=== PATIENT | female | born 2000 | race Caucasian/White ===

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

== ENCOUNTER 2020-07-25 22:28 | Emergency (ER) | payer OTHER ==
[~2020-07-25] VITALS: Ht 165.1 cm; Wt 83.6 kg
[~2020-07-25 22:28] MED LIST changes: +ZOFRAN ODT4 MG PO
[2020-07-25 23:11] LABS: COLLECTION METHOD CLEAN CATCH
[2020-07-25 23:13] LABS: BASO % 0.2 % (0.0-2.0); EOS % 0.1 % (0-4.0); GRAN # 8.9 (1.4-6.5); GRAN % 88.1 % (42.2-75.2); LYMPH # 0.8 (1.2-3.4); LYMPH % 7.8 % (20.0-51.0); MEAN CELL VOLUME 87 fl (80.0-95.0); MEAN CORPUSCULAR HEMOGLOBIN 29 pg (26.0-32.0); MEAN CORPUSCULAR HGB CONC 33 g/dl (33.0-37.0); MEAN PLATELET VOLUME 10.4 fl (7.4-10.4); MONO # 0.3 (0.1-0.6); MONO % 3.4 % (1.7-9.3); PLATELET COUNT 281 K/mm3 (130-400); REDCELL DISTRIBUTION WIDTH-CV 12.2 % (11.5-14.5)
[2020-07-25 23:21] LABS: MUCOUS Present /lpf; PH 6 (5-8); URINE APPEARANCE Hazy; URINE BACTERIA None Seen /hpf; URINE BILIRUBIN Negative (NEGATIVE); URINE BLOOD 2+ (NEGATIVE); URINE COLOR Amber; URINE GLUCOSE Negative (NEGATIVE); URINE KETONE 2+ (NEGATIVE); URINE LEUKOCYTE ESTERASE 2+ (NEGATIVE); URINE NITRATE Negative (NEGATIVE); URINE PROTEIN(semi-quant) 1+ (NEGATIVE); URINE UROBILINOGEN >=4.0 mg/dL (NEGATIVE)
[2020-07-25 23:27] LABS: ALBUMIN 4.3 gm/dL (3.5-5.0); BILIRUBIN,TOTAL 0.7 mg/dL (0.0-1.0); CREATININE, serum 0.61 (0.52-1.25); POTASSIUM 3.7 mmol/L (3.4-5.0)
[2020-07-26 01:19] VITALS: BP 112/74; PULSE 84
== END 2020-07-26 01:30 | disposition home or self-care (01) ==
LOC: COL.ER 22:28
PROVIDERS: Nurse Practitioner
DX: R11.2 Nausea with vomiting, unspecified (principal); R10.10 Upper abdominal pain, unspecified; R19.7 Diarrhea, unspecified; Z90.49 Acquired absence of other specified parts of digestive tract
CPT/HCPCS: J2405; J7030

== ENCOUNTER 2021-09-08 17:29 | Emergency (ER) | payer MEDICAID ==
[~2021-09-08] VITALS: Ht 165.1 cm; Wt 86.4 kg
[2021-09-08 17:39] VITALS: TEMP 98.2
[2021-09-08 18:18] LABS: COLLECTION METHOD CLEAN CATCH
[2021-09-08 18:25] LABS: MUCOUS Present (NOT PRESENT); PH 6 (5-8); URINE APPEARANCE Hazy (CLEAR/HAZY); URINE BACTERIA Rare /hpf (NONE SEEN); URINE BILIRUBIN Negative (NEGATIVE); URINE BLOOD Negative (NEGATIVE); URINE COLOR Yellow (YELLOW); URINE GLUCOSE Negative (NEGATIVE); URINE KETONE Trace (NEGATIVE); URINE LEUKOCYTE ESTERASE Trace (NEGATIVE); URINE NITRATE Negative (NEGATIVE); URINE PROTEIN(semi-quant) Negative (NEGATIVE); URINE UROBILINOGEN Negative (NEGATIVE)
[2021-09-08] MEDS ORDERED: PROMETHAZINE12.5 M5 PO (18:30)
[2021-09-08 18:52] LABS: CALCIUM 9.1 mg/dL (8.4-10.2); CREATININE, serum 0.62 mg/dL (0.57-1.11); POTASSIUM 3.3 mmol/L (3.5-4.5)
[2021-09-08] MEDS ORDERED: MACROBID 1100 MG/CAP PO (19:06)
[2021-09-08] MEDS ORDERED: REGLAN 10MG10 MG/TAB PO (19:06)
[2021-09-08 19:13] VITALS: BP 121/74; PULSE 72
== END 2021-09-08 19:20 | disposition home or self-care (01) ==
LOC: COL.ER 17:29
PROVIDERS: Emergency Medicine
DX: O23.41 Unspecified infection of urinary tract in pregnancy, first trimester (principal); B96.89 Other specified bacterial agents as the cause of diseases classified elsewhere; R55 Syncope and collapse; O26.891 Other specified pregnancy related conditions, first trimester; E86.0 Dehydration; Z3A.12 12 weeks gestation of pregnancy; Z28.311 Partially vaccinated for COVID-19
CPT/HCPCS: J7030

== ENCOUNTER 2021-09-26 16:55 | Emergency (ER) | payer MEDICAID ==
[~2021-09-26] VITALS: Ht 165.1 cm; Wt 81.8 kg
[~2021-09-26 16:55] MED LIST changes: +MACROBID 1100 MG/CAP PO; +REGLAN 10MG10 MG/TAB PO
[2021-09-26 17:18] VITALS: BP 94/60; PULSE 114; TEMP 98.1
== END 2021-09-26 18:00 | disposition left against medical advice (07) ==
LOC: COL.ER 16:55
DX: O99.511 Diseases of the respiratory system complicating pregnancy, first trimester (principal); R06.02 Shortness of breath; Z3A.13 13 weeks gestation of pregnancy

== ENCOUNTER 2021-09-26 19:41 | Emergency (ER) | payer MEDICAID ==
[~2021-09-26] VITALS: Ht 165.1 cm; Wt 81.8 kg
[2021-09-26 21:05] LABS: BASO # 0.1 K/mm3 (0.0-0.2); BASO % 0.5 % (0.0-2.0); EOS # 0.1 K/mm3 (0.0-0.7); EOS % 0.7 % (0.0-4.0); GRAN # 7.8 K/mm3 (1.4-6.5); GRAN % 76.7 % (42.2-75.2); HEMOGLOBIN 11.7 g/dl (12.5-16.0); LYMPH # 1.7 K/mm3 (1.2-3.4); LYMPH % 16.2 % (20.0-51.0); MEAN CELL VOLUME 84 fl (80.0-100.0); MEAN CORPUSCULAR HEMOGLOBIN 29 pg (27-31); MEAN CORPUSCULAR HGB CONC 35 g/dl (33.0-37.0); MONO # 0.6 K/mm3 (0.1-0.6); MONO % 5.5 % (1.7-9.3); PLATELET COUNT 262 K/mm3 (130-400); REDCELL DISTRIBUTION WIDTH-CV 12.6 % (11.5-14.5)
[2021-09-26 21:12] LABS: HEMATOCRIT 33.7 % (37.0-47.0)
[2021-09-26 22:05] LABS: ANION GAP 10 mmol/L (7-16); BLOOD UREA NITROGEN 8 mg/dL (7-19); CALCIUM 8.4 mg/dL (8.4-10.2); CARBON DIOXIDE 21 mmol/L (22-29); CHLORIDE 106 mmol/L (98-107); CREATININE, serum 0.58 mg/dL (0.57-1.11); GLUCOSE 106 mg/dL (70-99); POTASSIUM 3.5 mmol/L (3.5-4.5); SODIUM 137 mmol/L (136-145)
[2021-09-26 22:17] LABS: TROPONIN-I < 0.010 ng/mL (0.00-0.033)
[2021-09-26 22:50] VITALS: BP 108/65; PULSE 81; TEMP 98.8
== END 2021-09-26 22:50 | disposition home or self-care (01) ==
LOC: COL.ER 19:41
PROVIDERS: Emergency Medicine
DX: O99.891 Other specified diseases and conditions complicating pregnancy (principal); R06.09 Other forms of dyspnea; Z3A.13 13 weeks gestation of pregnancy
CPT/HCPCS: J7120

== ENCOUNTER 2022-02-16 17:10 | Outpatient (CLI) | payer MEDICAID ==
[~2022-02-16] VITALS: Ht 162.6 cm; Wt 87.3 kg
[2022-02-16 18:15] VITALS: BP 111/70; PULSE 99; TEMP 97.7
--- NOTE | 2022-02-16 18:28 | NUR ---
22 YO AT 35.1 WKS GESTATION TO LR6 WITH C/O SHARP PAIN IN HER VAGINA THAT HAPPENED ABOUT 1645 TODAY, LASTED LESS THAN 5 MINUTES AND IS GONE NOW. PT DENIES LEAKING FLUID OR VAGINAL BLEEDING, REPORTS FEW KAYLYN VALDERRAMA CTXS AND REPORTS GOOD MOVEMENT
[2022-02-16 18:45] VITALS: BP 122/63; PULSE 90; TEMP 98
--- NOTE | 2022-02-16 18:45 | NUR ---
SVE CLOSED, THICK, HIGH. DENIES FEELING CONTRACTIONS. CONTRACTION PATTERN IRREGULAR, CONTRACTION X3 IN 30 MINS, PALPATES SOFT, NO VAGINAL BLEEDING WITH SVE. .
--- NOTE | 2022-02-16 19:00 | NUR ---
CONTRACTION X1
[2022-02-16] MEDS ORDERED: PRENATAL TABLET PO (19:05)
--- NOTE | 2022-02-16 19:15 | NUR ---
DISCHARGE TEACHING COMPLETED, DENIES QUESTIONS OR CONCERNS. ENCOURAGED TO CALL UNIT OR NOTIFY PROVIDER WITH FURTHER QUESTIONS. 1918 DISCHARGE, AMBULATES INDEPENDENTLY, DISCHARGE INSTRUCTIONS IN HAND.
== END 2022-02-16 19:18 | disposition home or self-care (01) ==
LOC: COL.ER 17:10 → LDRO 17:10 → EDSTATUS 17:48 → LDRO 19:18
DX: O26.899 Other specified pregnancy related conditions, unspecified trimester (principal); R10.2 Pelvic and perineal pain; Z3A.00 Weeks of gestation of pregnancy not specified